=== PATIENT | female | born 1985 | race Caucasian/White ===

== ENCOUNTER 2022-08-02 11:30 | Outpatient (CLI) | payer MEDICAID ==
[~2022-08-02] VITALS: Ht 175.3 cm; Wt 100.0 kg
== END 2022-08-02 15:19 | disposition home or self-care (01) ==
LOC: PREOP 11:30
PROVIDERS: ATTEND Obstetrics & Gynecology
DX: Z01.818 Encounter for other preprocedural examination (principal)

== ENCOUNTER 2022-08-08 10:56 | Day surgery (SDC) | payer MEDICAID, OTHER ==
[2022-08-08] VITALS (9 sets, daily range): BP systolic 109–146; BP diastolic 64–80
[~2022-08-08] VITALS: Ht 175 cm; Wt 100.0 kg
[2022-08-08] MEDS: LACTATED RINGERS 1,000 ML IV PRN ×2 (11:45→13:28)
[2022-08-08 11:49] LABS: BASOPHILS % (AUTO) 1 % (0-10); EOSINOPHILS # (AUTO) 0.1 10^3/uL (0.0-0.3); EOSINOPHILS % (AUTO) 2 % (0-10); HEMATOCRIT 39 % (35-52); HEMOGLOBIN 13.2 g/dL (11.5-16.0); LYMPHOCYTES # (AUTO) 2.1 10^3/uL (1.0-4.0); LYMPHOCYTES % (AUTO) 32 % (12-44); MEAN CORPUSCULAR HEMOGLOBIN 30 pg (25-34); MEAN CORPUSCULAR HGB CONC 34 g/dL (32-36); MEAN CORPUSCULAR VOLUME 89 fL (80-99); MEAN PLATELET VOLUME 10.6 fL (9.0-12.2); MONOCYTES # (AUTO) 0.4 10^3/uL (0.0-1.0); MONOCYTES % (AUTO) 7 % (0-12); NEUTROPHILS # (AUTO) 3.8 10^3/uL (1.8-7.8); NEUTROPHILS % (AUTO) 59 % (42-75); PLATELET COUNT 282 10^3/uL (130-400); WHITE BLOOD COUNT 6.4 10^3/uL (4.3-11.0)
[2022-08-08] MEDS ORDERED: ceFAZolin INJECTION 1,000 MG ONE (11:55)
[2022-08-08] MEDS ORDERED: ceFAZolin INJECTION 1,000 MG VIAL IV ONE (12:00)
[2022-08-08] MEDS ORDERED: LIDOCAINE/EPI 2% 1:200,00 (XYLOCAINE) 20 ML VIAL ONE (12:15)
[2022-08-08] MEDS ORDERED: MIDAZOLAM 2 MG/2 ML (VERSED) VIAL ONE (12:23)
[2022-08-08] MEDS ORDERED: LIDOCAINE PF 2% 5 ML (XYLOCAINE) VIAL ONE (12:23)
[2022-08-08] MEDS ORDERED: ONDANSETRON 4 MG/2 ML (SDV) Z0FRAN ONE ×2 (12:23→12:26)
[2022-08-08] MEDS ORDERED: proPOfol 200 MG/20 ML (DIPRIVAN) VIAL IV ONE (12:23)
[2022-08-08] MEDS ORDERED: fentaNYL INJ 100 MCG/2 ML AMP ONE (12:23)
[2022-08-08] MEDS ORDERED: ROCURONIUM 10 MG/ML 5 ML SYRINGE IV ONE (12:23)
[2022-08-08] MEDS ORDERED: SEVOFLURANE (ULTANE) 15 ML INHAL SOLN ONE (12:23)
--- NOTE | 2022-08-08 13:07 | Progress Note-Pre Operative ---
Pre-Operative Progress Note Date of Available H&P: Aug 08, 2022 Date H&P Reviewed: Aug 08, 2022 Time H&P Reviewed: 13:07 History & Physical: H&P Reviewed, No changes noted Pre-Operative Diagnosis: Menometrorrhagia KLARISSA POTTS MD Aug 08, 2022 13:07
--- NOTE | 2022-08-08 13:07 | Progress Note-Post Operative ---
Post-Operative Progess Note Surgeon (s)/Forest Nursery Worker (s) Surgeon KLARISSA POTTS MD Forest Nursery Worker: Allyson Pre-Operative Diagnosis Menometrorrhagia Post-Operative Diagnosis Same with Extensive abdominal pelvic adhesions and with pathology pending Procedure & Operative Findings Date of Procedure 08/08/22 Procedure Performed/Findings Total laparoscopic hysterectomy with bilateral salpingectomies And with extensive adhesiolysis and with cystoscopy Anesthesia Type General Estimated Blood Loss Estimated blood loss (mL): Minimal cc Specimens/Packing Specimens Removed Uterus and fallopian tubes KLARISSA POTTS MD Aug 08, 2022 13:07
[2022-08-08] MEDS ORDERED: IBUP-1780 PO (13:12)
[2022-08-08] MEDS ORDERED: OXYC-199 PO (13:12)
[2022-08-08] MEDS ORDERED: DOCU-143 PO (13:12)
--- NOTE | 2022-08-08 13:13 | Discharge Inst-Surgical ---
Discharge Inst-Surgical Depart Medication/Instructions New, Converted or Re-Newed RX: Transmitted to Pharmacy Consults/Follow Up Orders & Referrals Follow Up Appt: Return to clinic on Saturday, August 10, 2022 for staple removal Call to make follow up appt. for patient in 4 weeks. Activity: Rest for 24 hours, than as tolerated. Wound Care: May remove Band-Aid tomorrow. Replace as desired. Keep incisions clean and dry. Wash daily with soap and water. Diet: As tolerated shower or tub bathe as desired. No driving for 24 hours, no alcoholic beverages for 24 hours, and nothing per vagina (no tampons, douching, or intercourse) for 8 weeks. Patient to return to the clinic as soon as possible for: Temperature greater than 101F, Severe Pain, Foul discharge from incision or vagina, Excessive Bleeding (more than a period). Activity Activity as Tolerated: No Diet Discharge Diet: No Restrictions KLARISSA POTTS MD Aug 08, 2022 13:13
[2022-08-08] MEDS ORDERED: ONDANSETRON 4 MG/2 ML (SDV) Z0FRAN IVP PRN (13:15)
[2022-08-08] MEDS ORDERED: KETOROLAC 30 MG/ML VIAL IV SCH (13:15)
[2022-08-08] MEDS ORDERED: ESTROGENS CONJ INJECTION 25 MG in WATER (STERILE) FOR INJECTION 5 ML IV ONE (13:15)
[2022-08-08] MEDS ORDERED: PROMETHAZINE INJ 25 MG/ML (PHENERGAN) AMP IM PRN (13:15)
[2022-08-08] MEDS ORDERED: MEPERIDINE (DEMEROL) INJ 100 MG/ML IVP PRN (13:15)
[2022-08-08] MEDS ORDERED: GLYCOPYRROLATE 0.2 MG/ML (ROBINUL) 2 ML VIAL ONE (14:39)
[2022-08-08] MEDS ORDERED: NEOSTIGMINE (BLOXIVERZ ) 1 MG/1ML 10 ML VIAL ONE (14:39)
--- NOTE | 2022-08-08 14:58 | Anesthesia-General Post-Op ---
General Patient Condition Mental Status/LOC: Same as Preop Cardiovascular: Satisfactory Nausea/Vomiting: Absent Respiratory: Satisfactory Pain: Controlled Complications: Absent Post Op Complications Complications None Follow Up Care/Instructions Patient Instructions None needed. Anesthesia/Patient Condition Patient Condition Patient is doing well, no complaints, stable vital signs, no apparent adverse anesthesia problems. No complications reported per nursing. MARCO SORIANO CRNA Aug 08, 2022 14:58
[2022-08-08] MEDS ORDERED: morphine INJ 10 MG/ML 1ML (SYR OR VIAL) ONE (14:59)
[2022-08-08] MEDS ORDERED: MEPERIDINE (DEMEROL) INJ 50 MG/ML IVP ONE (15:00)
[2022-08-08] MEDS ORDERED: morphine INJ 10 MG/ML 1ML (SYR OR VIAL) IVP ONE (15:00)
[2022-08-08] MEDS ORDERED: HYDROmorphone 2 MG/ML VIAL (DILAUDID) IV ONE (15:00)
[2022-08-08] MEDS ORDERED: KETOROLAC 30 MG/ML VIAL ONE (15:03)
[2022-08-08] MEDS: ONDANSETRON 4 MG/2 ML (SDV) Z0FRAN IVP PRN ×3 (15:46→16:06)
[2022-08-08] MEDS: D5 LR IV SOLUTION 1,000 ML IV SCH (17:03)
[2022-08-08] MEDS ORDERED: oxyCODONE/APAP 5/325MG (PERCOCET 5) TABLET PO PRN (18:45)
[2022-08-08] MEDS: KETOROLAC 30 MG/ML VIAL IV SCH (21:10)
--- NOTE | 2022-08-08 22:12 | OPERATIVE REPORT ---
DATE OF SERVICE: 08/08/2022 PREOPERATIVE DIAGNOSIS: Menometrorrhagia. POSTOPERATIVE DIAGNOSIS: Menometrorrhagia. OPERATIVE PROCEDURE: Total laparoscopic hysterectomy with bilateral salpingectomies as well as extensive adhesiolysis and cystoscopy. OPERATIVE DESCRIPTION: With the patient in the supine position under satisfactory general anesthesia, she was repositioned in dorsal lithotomy position in the [facility], then prepped and draped in the usual fashion for abdominal and vaginal surgery using robotic assistance. A weighted speculum placed in posterior fornix of vagina, cervix exposed and grasped anteriorly with single tooth tenaculum. Uterus sounded to 13 cm with uterine sound. The cervix was then serially dilated with Vel dilators to accommodate a Za II manipulator, which was placed in a 6 mm x 8 cm uterine probe and a 25 mm colpotomy ring. Sutures of #1 Vicryl were placed at 3 and 9 o'clock position of the cervix to affix the uterus to the manipulator. Merritt catheter was placed in the urinary bladder. Tenaculum and speculum were removed. The patient was brought in low dorsal lithotomy position. A 12 mm incision was made 10 cm superior to the umbilicus. Veress needle was placed through that incision, correct placement confirmed with water drop test and the abdomen was insufflated with 2.4 liters of carbon dioxide. Veress needle was removed and attempt was made to place a 12 mm port through that incision. The attempt was unsuccessful rather than trial repeatedly; a 5 mm port was placed in incision of that size, near Gamble's point in the left upper quadrant and then under direct vision, the 12 mm port to be placed through the supraumbilical incision. There were extensive adhesions of the omentum to the anterior abdominal wall interfering with initially for port placement. 8 mm ports were placed under direct vision now 8 cm lateral to the umbilicus approximately 4 cm superior to the umbilicus and then hook cautery was used through the left lateral port device. The adhesions of the omentum from the abdominal wall from well above the umbilicus all the way down to the pelvis and the fundus of the uterus where the adhesions of the omentum were essentially ended. It was noted that the uterus was densely adherent to the anterior abdominal wall with no anterior cul-de-sac and no obvious access to the bladder. With the omental adhesiolysis performed, the patient was placed in Trendelenburg allowing the bowel spill out of the pelvis. The da Ronal column was advanced on the patient and docked, and then I retired to the da Ronal console after operative instruments were placed in the right and left lateral ports. Using a monopolar shear on the right, the balance of the omental adhesions to the uterus were taken free and then with very careful and meticulous dissection, the uterus, which was densely adherent to the anterior abdominal wall through the entire from the fundus and then carried down to the lower uterine segment and down onto the cervix. There was no free access to the bladder at any point. Very careful and meticulous dissection was undertaken to free the uterus and to eventually expose the wall of the bladder. The bladder was eventually identified and then the anterior superior margin of the bladder could be freed from the lower uterine segment and the vesicovaginal space eventually dissected to allow the bladder to become freed down off the lower uterine segment. At this point, attention was turned to the adnexa. Using a vessel sealer, the right tube and ovary were grasped and elevated. The mesosalpinx was clamped, cauterized and divided with the vessel sealer that was continued over to the uteroovarian pedicle. The uteroovarian pedicle was then clamped, cauterized and divided as well continuing across the round ligament, across the broad ligament and down onto the cardinal ligament, allowing for removal of the right fallopian tube with conservation of the right ovary. The right ureter could seem to be peristalsing medial to this at this dissection. Same procedure performed on the left, although the left ureter never was definitively identified. With the adnexa free, attention was turned to the appendix. It was a normal vermiform appendix that was left in situ. Attention was brought back to the pelvis. Using now a monopolar shear again on the right port, the anterior lower uterine segment having been exposed, a colpotomy incision was made at 12 o'clock position that was continued circumferentially until the entire colpotomy ring was exposed and then the uterus was extracted through the vagina with the tubes still attached. Vaginal cuff was closed with a running locked suture of V-Loc barbed suture starting from the left angle because of some pulsatile vessels on that side. The V-Loc barbed suture was placed in such a manner to include the uterine vessel pedicles, which effected complete hemostasis. The balance of the vaginal cuff was closed with that same suture given good reapproximation and good hemostasis. With that done, the pelvis was examined a final time. There was no remaining pathology of concern. Extensive adhesiolysis had been performed, but there was no significant bleeding from the adhesiolysis site. The laparoscopic portion of the procedure was halted. The operative instruments were removed as were the ports. The abdomen was evacuated of the insufflating gas in that process. The skin incisions were closed with lelo after closing the fascia at the supraumbilical incision with a [id number] suture of 2-0 Vicryl. All 4 skin incisions were stapled. The patient was brought out of Trendelenburg. The Merritt catheter was removed and using a cystoscope, cystoscopy was performed with findings of free ureteral orifice efflux bilaterally. The bladder wall was intact. There was no obvious defect in the bladder wall considering the extensive dissection undertaken to free the bladder from the uterus. With the integrity of the bladder confirmed and free efflux from the ureters confirmed, the cystoscope was removed. Merritt catheter was replaced to dependent drainage. Speculum was placed in the vagina. The vaginal cuff was examined and found completely intact and completely hemostatic. Sponge and needle counts were correct on completion of the procedure. Blood loss was minimal. The patient was uneventfully awakened from her general anesthesia and transferred to the recovery room in stable condition. Job ID: [id number] DocumentID: [id number] Dictated Date: 08/08/2022 17:08:13 Rn Ostomy Date: 08/08/2022 22:11:32 Dictated By: KLARISSA POTTS MD
[2022-08-09] MEDS: D5 LR IV SOLUTION 1,000 ML IV SCH (00:25)
[2022-08-09 00:27] VITALS: BP 128/64
[2022-08-09] MEDS: KETOROLAC 30 MG/ML VIAL IV SCH (03:54)
[2022-08-09 03:57] VITALS: BP 119/57
--- NOTE | 2022-08-09 08:01 | Progress Note ---
Standard Progress Note Progress Notes/Assess & Plan Date Seen by a Provider: Aug 09, 2022 Time Seen by a Provider: 07:59 Progress/Assessment & Plan This patient is without complaint. She is ambulating, voiding, tolerating oral intake and has good pain control. She is requesting discharge home. Vital Signs Date Time Temp Pulse Resp B/P (MAP) Pulse Ox O2 Delivery O2 Flow Rate FiO2 08/09/22 03:57 36.5 71 18 119/57 (77) 97 Room Air 08/09/22 00:27 36.3 91 16 128/64 (85) 96 Room Air 08/08/22 19:42 36.2 93 18 134/76 (95) 94 Room Air 08/08/22 16:15 97 Room Air 08/08/22 16:15 35.9 67 18 146/70 (95) 97 Room Air 08/08/22 15:50 Room Air 08/08/22 15:40 36.6 16 145/80 (101) 96 Room Air 08/08/22 15:30 17 144/80 (101) 100 Room Air 08/08/22 15:25 OxyMask 2.00 08/08/22 15:20 20 144/80 (101) 100 OxyMask 2.00 08/08/22 15:10 OxyMask 2.00 08/08/22 15:10 20 136/76 (96) 99 OxyMask 2.00 08/08/22 15:00 16 123/64 (83) 100 OxyMask 4.00 08/08/22 14:52 36.8 16 123/66 (85) 98 OxyMask 6.00 08/08/22 14:52 OxyMask 6.00 08/08/22 12:12 36.6 80 18 109/72 (84) 98 Room Air I & O 08/09/22 07:00 Intake Total 2410 ml Output Total 2625 ml Balance -215 ml Vital signs are stable. Patient is afebrile. The abdomen is benign. Extremities show no clubbing or cyanosis. There is no Homans' sign. Pelvic exam is deferred Assessment and plan Postoperative day 1 doing well plan is for discharge home with follow-up in clinic Final Diagnosis Menometrorrhagia KLARISSA POTTS MD Aug 09, 2022 08:00
[2022-08-09 08:31] VITALS: BP 120/64
[2022-08-09] MEDS ORDERED: DOCUSATE SODIUM 100 MG (COLACE) CAP PO SCH (09:00)
[2022-08-09 09:20] VITALS: BP 120/64
[2022-08-09] MEDS ORDERED: IBUPROFEN 800 MG (MOTRIN) TAB PO SCH (15:00)
== END 2022-08-09 09:23 | disposition home or self-care (01) ==
LOC: SDC 10:56 → WS 16:27 → SDC 08-09 09:23
PROVIDERS: ATTEND Obstetrics & Gynecology
DX: N80.0 Endometriosis of uterus (principal); N72 Inflammatory disease of cervix uteri; Z28.310 Unvaccinated for COVID-19; N84.1 Polyp of cervix uteri; Z87.891 Personal history of nicotine dependence; Z79.899 Other long term (current) drug therapy
CPT/HCPCS: 36415; 84703; 85025; 86850; 86900; 86901; 87081; 94664

== ENCOUNTER 2023-04-30 15:16 | Emergency (ER) | payer MEDICAID ==
[~2023-04-30] VITALS: Ht 175 cm; Wt 104.3 kg
[~2023-04-30 15:16] MED LIST: DOCU-143 PO; IBUP-1780 PO; OXYC-199 PO
[2023-04-30] MEDS ORDERED: ASPIRIN 81 MG CHEW (CHILDREN'S ASA) PO ONE (15:30)
--- NOTE | 2023-04-30 15:30 | ED Cardiac General ---
History of Present Illness General Chief Complaint: Cardiac/General Problems Stated Complaint: INCREASED HEART RATE Source: patient Exam Limitations: no limitations History of Present Illness Date Seen by Provider: Apr 30, 2023 Time Seen by Provider: 15:25 Initial Comments Patient Is a 38-year-old female who presents the ED for increased heart rate, heart palpitations, chest pressure. Symptoms started around 245. She states she was sitting at home at the time. Start developing pressure to the left side of her chest with radiation to the left shoulder left upper arm. She currently rates pain 3 out of 10. She checked her Apple Watch noted her heart rate in the 120s. She had associated shortness of breath with some shortness of breath with exertion. She states felt like her heart was fluttering. 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 She states yesterday she was seen at [facility] for right-sided facial droop. She states that appears better today however she noticed when drinking sometimes water will squirt out the right side of her mouth. She denies of any headache, dizziness, nausea, vomiting, diarrhea, unilateral muscle weakness or sensory changes. Denies of any visual changes. No known cardiac history. Denies history of diabetes, high cholesterol, smoking, hypertension. Family cardiac history. Patient had a increase in her Contrave last week. Patient denies of any recent travels or surgeries. Denies any leg swelling. Allergies and Home Medications Allergies Coded Allergies: No Known Drug Allergies (Unverified , 08/02/22) Patient Home Medication List Home Medication List Reviewed: Yes Docusate Sodium (Colace) 100 Mg Capsule, 100 MG PO BID Prescribed by: KLARISSA HUSSEIN on 08/08/22 1312 Ibuprofen (Ibuprofen) 800 Mg Tablet, 800 MG PO Q6H PRN for PAIN Prescribed by: KLARISSA HUSSEIN on 08/08/22 1312 Oxycodone HCl/Acetaminophen (Percocet 5-325 mg Tablet) 5 Mg-325 Mg Tablet, 1 TAB PO Q4H PRN for PAIN-MODERATE Prescribed by: KLARISSA HUSSEIN on 08/08/22 1313 Review of Systems Review of Systems Constitutional: No chills, No diaphoresis, No malaise, No weakness EENTM: No Double Vision, No Eye Pain Respiratory: Denies Cough, Denies Orthopnea; Shortness of Air Cardiovascular: Chest Pain Gastrointestinal: Denies Abdominal Pain, Denies Blood Streaked Stools, Denies Constipated, Denies Diarrhea, Denies Nausea, Denies Vomiting Genitourinary: Denies Burning, Denies Discharge, Denies Drainage, Denies Frequency Musculoskeletal: No back pain, No joint pain Skin: No change in color All Other Systems Reviewed Negative Unless Noted: Yes Past Sugotqo-Bkorzo-Teaoqo Hx Seasonal Allergies Seasonal Allergies: Yes Past Medical History Surgeries: Yes (c/s x5, D&C) Gallbladder Respiratory: No Currently Using CPAP: No Currently Using BIPAP: No Cardiac: No Neurological: No Genitourinary: Yes Neurogenic Bladder Gastrointestinal: No Musculoskeletal: No Endocrine: No HEENT: No Cancer: No Psychosocial: No Integumentary: No Blood Disorders: No Physical Exam Vital Signs Vital Signs - First Documented 04/30/23 15:22 Temp 35.9 Pulse 92 Resp 18 B/P (MAP) 141/87 (105) Pulse Ox 98 Capillary Refill : Height, Weight, BMI Height: '" Weight: lbs. oz. kg; 32.65 BMI Method: General Appearance: No Apparent Distress, WD/WN HEENT: PERRL/EOMI, TMs Normal, Normal ENT Inspection, Pharynx Normal, Other (Possible mild right-sided facial droop.) Neck: Full Range of Motion, Normal Inspection, Non Tender, Supple Respiratory: Chest Non Tender, Lungs Clear, Normal Breath Sounds, No Accessory Muscle Use, No Respiratory Distress Cardiovascular: Regular Rate, Rhythm, No Edema, No Gallop, No JVD, No Murmur Gastrointestinal: Normal Bowel Sounds, No Organomegaly, No Pulsatile Mass, Non Tender, Soft Extremity: Normal Capillary Refill, Normal Inspection, Normal Range of Motion Neurologic/Psychiatric: Alert, Oriented x3, No Motor/Sensory Deficits, Normal Mood/Affect, production trainer II-XII Norm as Tested Skin: Normal Color, Warm/Dry Progress/Results/Core Measures Results/Orders Lab Results Laboratory Tests Test 04/30/23 15:28 Range/Units White Blood Count 6.8 4.3-11.0 10^3/uL Red Blood Count 4.69 3.80-5.11 10^6/uL Hemoglobin 14.2 11.5-16.0 g/dL Hematocrit 42 35-52 % Mean Corpuscular Volume 89 80-99 fL Mean Corpuscular Hemoglobin 30 25-34 pg Mean Corpuscular Hemoglobin Concent 34 32-36 g/dL Red Cell Distribution Width 11.9 10.0-14.5 % Platelet Count 280 130-400 10^3/uL Mean Platelet Volume 9.8 9.0-12.2 fL Immature Granulocyte % (Auto) 0 % Neutrophils (%) (Auto) 90 H 42-75 % Lymphocytes (%) (Auto) 9 L 12-44 % Monocytes (%) (Auto) 1 0-12 % Eosinophils (%) (Auto) 0 0-10 % Basophils (%) (Auto) 0 0-10 % Neutrophils # (Auto) 6.1 1.8-7.8 X 10^3 Lymphocytes # (Auto) 0.6 L 1.0-4.0 X 10^3 Monocytes # (Auto) 0.0 0.0-1.0 X 10^3 Eosinophils # (Auto) 0.0 0.0-0.3 10^3/uL Basophils # (Auto) 0.0 0.0-0.1 10^3/uL Immature Granulocyte # (Auto) 0.0 0.0-0.1 10^3/uL Neutrophils % (Manual) 88 % Lymphocytes % (Manual) 11 % Monocytes % (Manual) 1 % Blood Morphology Comment NORMAL Prothrombin Time 12.7 12.2-14.7 SEC INR Comment 0.9 0.8-1.4 Activated Partial Thromboplast Time 27 24-35 SEC D-Dimer < 0.27 0.00-0.49 UG/ML Sodium Level 138 135-145 MMOL/L Potassium Level 3.6 3.6-5.0 MMOL/L Chloride Level 107 98-107 MMOL/L Carbon Dioxide Level 20 L 21-32 MMOL/L Anion Gap 11 5-14 MMOL/L Blood Urea Nitrogen 12 7-18 MG/DL Creatinine 0.82 0.60-1.30 MG/DL Estimat Glomerular Filtration Rate 95 BUN/Creatinine Ratio 15 Glucose Level 129 H 70-105 MG/DL Calcium Level 9.9 8.5-10.1 MG/DL Corrected Calcium 8.5-10.1 MG/DL Magnesium Level 1.8 1.6-2.4 MG/DL Total Bilirubin 0.5 0.1-1.0 MG/DL Aspartate Amino Transf (AST/SGOT) 14 5-34 U/L Alanine Aminotransferase (ALT/SGPT) 25 0-55 U/L Alkaline Phosphatase 46 40-136 U/L Myoglobin 23.3 10.0-92.0 NG/ML Troponin I < 0.028 <0.028 NG/ML Total Protein 7.8 6.4-8.2 GM/DL Albumin 4.6 H 3.2-4.5 GM/DL Lipase 19 8-78 U/L My Orders Orders - JOSE LANDON PA Ekg Tracing (04/30/23 15:18) Cbc With Automated Diff (04/30/23 15:24) Magnesium (04/30/23 15:24) Chest 1 View, Ap/Pa Only (04/30/23 15:24) Comprehensive Metabolic Panel (04/30/23 15:24) Myoglobin Serum (04/30/23 15:24) Protime With Inr (04/30/23 15:24) Partial Thromboplastin Time (04/30/23 15:24) Lipid Panel (05/01/23 06:00) Ed Iv/Invasive Line Start (04/30/23 15:24) Lipase (04/30/23 15:24) Troponin I [place] (04/30/23 15:24) Aspirin Chewable Tablet (Baby Aspirin Ch (04/30/23 15:30) Manual Differential (04/30/23 15:28) Morphine Injection (Morphine Injection (04/30/23 16:15) Thyroid Stimulating Hormone (04/30/23 16:08) Fibrin Degradation Products (04/30/23 16:15) Medications Given in ED Current Medications Medications Dose Ordered Sig/Nancy Route Start Time Stop Time Status Last Admin Dose Admin Aspirin 324 mg ONCE ONCE PO 04/30/23 15:30 04/30/23 15:31 DC 04/30/23 15:33 324 MG Vital Signs/I&O 04/30/23 15:22 Temp 35.9 Pulse 92 Resp 18 B/P (MAP) 141/87 (105) Pulse Ox 98 Comment Sinus rhythm, 77 bpm, QRS duration 93 MS, QTc 400 MS Departure Impression Primary Impression: Chest pain Disposition: 01 HOME, SELF-CARE Condition: Stable Departure-Patient Inst. Decision time for Depature: 16:39 Referrals: [facility] (PCP/Family) Primary Care Physician EVELYN CHAIREZ MD Patient Instructions: Chest Pain (DC) Add. Discharge Instructions: Recommend following up with your primary care physician 2 to 3 days for reevaluation. If continue worsening chest pain to return to back to ED. All discharge instructions reviewed with patient and/or family. Voiced understanding. JOSE LANDON Apr 30, 2023 15:30
[2023-04-30 15:35] LABS: BASOPHILS % (AUTO) 0 % (0-10); EOSINOPHILS % (AUTO) 0 % (0-10); HEMATOCRIT 42 % (35-52); HEMOGLOBIN 14.2 g/dL (11.5-16.0); LYMPHOCYTES # (AUTO) 0.6 X 10^3 (1.0-4.0); LYMPHOCYTES % (AUTO) 9 % (12-44); MEAN CORPUSCULAR HEMOGLOBIN 30 pg (25-34); MEAN CORPUSCULAR HGB CONC 34 g/dL (32-36); MEAN CORPUSCULAR VOLUME 89 fL (80-99); MEAN PLATELET VOLUME 9.8 fL (9.0-12.2); MONOCYTES % (AUTO) 1 % (0-12); NEUTROPHILS # (AUTO) 6.1 X 10^3 (1.8-7.8); NEUTROPHILS % (AUTO) 90 % (42-75); PLATELET COUNT 280 10^3/uL (130-400); WHITE BLOOD COUNT 6.8 10^3/uL (4.3-11.0)
--- NOTE | 2023-04-30 15:43 | Diagnostic Imaging Report ---
INDICATION: Chest pain. FINDINGS: Lungs are clear. No failure, effusion, or pneumothorax. IMPRESSION: Negative. Dictated by: Dictated on workstation # [id number]
[2023-04-30 15:44] LABS: ALBUMIN 4.6 GM/DL (3.2-4.5); CHLORIDE 107 MMOL/L (98-107); INR 0.9 (0.8-1.4); POTASSIUM 3.6 MMOL/L (3.6-5.0); PROTHROMBIN TIME PATIENT 12.7 SEC (12.2-14.7); SODIUM 138 MMOL/L (135-145)
[2023-04-30 15:45] LABS: CALCIUM 9.9 MG/DL (8.5-10.1)
[2023-04-30 15:46] LABS: GLUCOSE 129 MG/DL (70-105)
[2023-04-30 15:47] LABS: TOTAL PROTEIN 7.8 GM/DL (6.4-8.2)
[2023-04-30 15:48] LABS: BILIRUBIN,TOTAL 0.5 MG/DL (0.1-1.0); CARBON DIOXIDE 20 MMOL/L (21-32)
[2023-04-30 15:50] LABS: ALKALINE PHOSPHATASE 46 U/L (40-136); CREATININE SERUM 0.82 MG/DL (0.60-1.30); GFR ESTIMATED 95
[2023-04-30 15:51] LABS: BUN/CREATININE RATIO 15
[2023-04-30 15:53] LABS: ALANINE AMINOTRANSFERASE 25 U/L (0-55); MAGNESIUM 1.8 MG/DL (1.6-2.4)
[2023-04-30 15:54] LABS: LIPASE 19 U/L (8-78)
[2023-04-30 16:05] LABS: LYMPHOCYTES % (MANUAL) 11 %; MONOCYTES % (MANUAL) 1 %; NEUTROPHILS % (MANUAL) 88 %; RBC MORPH NORMAL
[2023-04-30] MEDS ORDERED: morphine INJ 4 MG/ML 1 ML (VIAL/SYRINGE) IVP ONE (16:15)
[2023-04-30 16:44] VITALS: BP 119/69
== END 2023-04-30 16:44 | disposition home or self-care (01) ==
LOC: EDUNIT# 15:16 → ER 15:19
DX: R07.89 Other chest pain (principal); Z28.310 Unvaccinated for COVID-19
CPT/HCPCS: 36415; 71045; 80053; 83690; 83735; 83874; 84443; 84484; 85007; 85027; 85379; 85610; 85730; 93005